=== PATIENT | male | born 2000 | race Caucasian/White ===

== ENCOUNTER → 2021-07-30 15:23 | Outpatient (CLI) | payer OTHER, MEDICAID, SELFPAY ==
[2021-07-30 17:49] LABS: AST(SGOT) 18 U/L (15-37); Alanine Aminotransfer ALT/SGPT 51 U/L (16-61); Albumin, Serum 4.2 g/dL (3.2-5.0); Alkaline Phosphatase 55 U/L (45-117); Bilirubin, Direct 0.08 mg/dL (0.00-0.30); Globulin 2.9 g/dL (2.2-4.2); Protein, Total 7.1 g/dL (6.4-8.2)
== END ==
PROVIDERS: Referring Provider Dermatology; Visit Provider Dermatology
DX: B35.4 Tinea corporis (principal)
CPT/HCPCS: 36415; 80076